=== PATIENT | female | born 1945 | race Caucasian/White ===

== ENCOUNTER 2021-09-03 08:00 | Outpatient (CLI) | payer MEDICARE ==
--- NOTE | 2021-09-03 14:43 | XRAY Report ---
PROCEDURE: Ankle View RT INDICATIONS: PAIN IN RIGHT ANKLE AND JOINTS OF RIGHT FOOT TECHNIQUE: 2 views of the ankle were acquired. COMPARISON: None FINDINGS: Bones: No fractures or dislocations. Ankle mortise is normally aligned. No suspicious bony lesions . Posterior and plantar calcaneal spurring. Soft tissues: No tibiotalar joint effusion. Achilles tendon appears normal. Diffuse lower leg zayda a. IMPRESSION: No evidence of acute bony abnormality of the right ankle. Calcaneal spurring. Reviewed by: Davis Marx MD on 09/03/2021 2:42 PM PDT Approved by: Davis Marx MD on 09/03/2021 2:42 PM PDT Station ID: [id number]
== END 2021-09-03 23:59 | disposition home or self-care (01) ==
LOC: DI.N 08:00
PROVIDERS: ATTEND Nurse Practitioner
DX: M25.571 Pain in right ankle and joints of right foot (principal); M77.31 Calcaneal spur, right foot

== ENCOUNTER 2021-09-03 08:00 | Outpatient (CLI) | payer MEDICARE ==
[2021-09-03 18:17] LABS: BASOPHILS % (AUTO) 0.6 %; EOSINOPHILS % (AUTO) 0.4 %; HCT - HEMATOCRIT 43.2 % (37.0-47.0); HGB - HEMOGLOBIN 14.2 g/dL (12.0-16.0); LYMPHOCYTES # (AUTO) 1.9 10^3/uL (1.5-3.5); LYMPHOCYTES % (AUTO) 39.5 %; MEAN CORPUSCULAR HEMOGLOBIN 31.6 pg (27.0-31.0); MEAN CORPUSCULAR HGB CONC 32.9 g/dL (32.0-36.0); MEAN PLATELET VOLUME 10.7 fL (7.9-10.8); MONOCYTES # (AUTO) 0.4 10^3/uL (0.0-1.0); MONOCYTES % (AUTO) 8.1 %; NEUTROPHILS # (AUTO) 2.5 10^3/uL (1.5-6.6); NEUTROPHILS % (AUTO) 51.2 %; PLT - PLATELET COUNT 235 10^3/uL (130-450); RED CELL DISTRIBUTION WIDTH 12.6 % (12.0-15.0); WHITE BLOOD COUNT 4.9 x10^3/uL (4.8-10.8)
[2021-09-03 18:29] LABS: ALBUMIN 4.5 g/dL (3.2-5.5); ALBUMIN/GLOBULIN RATIO 1.3 (1.0-2.2); BILIRUBIN,TOTAL 0.8 mg/dL (0.2-1.0); CALCIUM 9.5 mg/dL (8.5-10.3); CREATININE 0.6 mg/dL (0.4-1.0); TOTAL PROTEIN 7.9 g/dL (6.7-8.2)
== END 2021-09-03 23:59 | disposition home or self-care (01) ==
LOC: LAB.N 08:00
PROVIDERS: ATTEND Nurse Practitioner
DX: M25.571 Pain in right ankle and joints of right foot (principal)
CPT/HCPCS: 36415; 80053; 85025; 85379

== ENCOUNTER 2022-03-26 11:00 | Outpatient (CLI) | payer MEDICARE | END 2022-03-26 23:59 | disposition short-term general hospital (02) | LOC: EMS 11:00 | DX: R42 Dizziness and giddiness (principal); R07.9 Chest pain, unspecified | CPT/HCPCS: A0425; A0429; A0888 ==

== ENCOUNTER 2022-03-28 09:15 | Outpatient (CLI) | payer MEDICARE | END 2022-03-28 23:59 | disposition critical access hospital (66) | LOC: EMS 09:15 | DX: R41.0 Disorientation, unspecified (principal); R47.89 Other speech disturbances | CPT/HCPCS: A0425; A0429 ==

== ENCOUNTER 2022-03-28 09:31 | Emergency (ER) | payer MEDICARE ==
--- NOTE | 2022-03-28 10:39 | ED Physician Documentation ---
PD HPI FOCAL NEURO - Stated complaint Stated Complaint: CONFUSED - Chief complaint Chief Complaint: Neuro - History obtained from History obtained from: Patient - History of Present Illness Timing - onset: How many days ago (Intermittently for 2 days has noticed some inability to complete sentences and feeling a slightly off balance. She was seen 3 days ago at the walk-in clinic and referred to [facility] for hypertension. Did not have confusion at that time. Treated and released from [facility].) Timing - duration: Days (2-3) Timing - details: Gradual onset, Still present, Intermittant Severity of deficit: Moderate Weakness: No: Face, Arm, Leg Numbness: No: Face, Arm, Leg Associated symptoms: Other (difficulty with sentence completion and thought processing intermittently.). No: Headache, Nausea / vomiting, Fall, Head injury, Fever Baseline status: positive: A&OX3, ambulatory, indep Similar symptoms before: Has not had sx before Recently seen: Clinic, Emergency Dept (3 days ago.) Review of Systems Constitutional: denies: Fever, Chills Nose: denies: Rhinorrhea / runny nose, Congestion Throat: denies: Sore throat Cardiac: reports: Chest pain / pressure (intermittent aching pain left upper chest towardd anterior neck area past few days.). denies: Palpitations, Pedal edema, Calf pain Respiratory: denies: Dyspnea, Cough GI: reports: Nausea. denies: Abdominal Pain, Vomiting, Diarrhea Skin: denies: Rash, Lesions Musculoskeletal: denies: Neck pain, Back pain, Extremity swelling Neurologic: denies: Altered mental status, Headache, Head injury PD PAST MEDICAL HISTORY - Past Medical History Cardiovascular: None Respiratory: None Neuro: None Endocrine/Autoimmune: None - Present Medications Home Medications: Ambulatory Orders Medication Instructions Recorded Confirmed Aspirin [[place] Aspirin] 81 mg PO DAILY 03/28/22 03/28/22 Cholecalciferol (Vitamin D3) 50 mcg PO DAILY 03/28/22 03/28/22 [Vitamin D3] Collagen/Biotin/Ascorbic Acid 1 cap PO DAILY 03/28/22 03/28/22 [Collagen 1500 Plus C Capsule] Diclofenac Sodium Dr [Voltaren] 75 mg PO BID 03/28/22 03/28/22 Lanreotide Acetate [Somatuline 60 mg SQ ONCE 03/28/22 03/28/22 Depot] Magnesium Citrate and Oxide 1 cap PO DAILY 03/28/22 03/28/22 [Magnesium] Meclizine HCl [Motion Sickness] 25 mg PO Q6H PRN #30 tablet 03/28/22 Melatonin 10 mg PO DAILY 03/28/22 03/28/22 Mv-Mn/Om3/Dha/Epa/Fish/Lut/Yumi 1 cap PO DAILY 03/28/22 03/28/22 [Ocuvite Adult 50 Plus Softgel] [place]-3S/Dha/Epa/Fish Oil [Fish 1 cap PO DAILY 03/28/22 03/28/22 Oil 1,200 mg Softgel] Telmisartan 40 mg PO DAILY 03/28/22 03/28/22 Vitamin B Complex 1 each PO DAILY 03/28/22 03/28/22 - Allergies Allergies/Adverse Reactions: Allergies Allergy/AdvReac Type Severity Reaction Status Date / Time No Known Drug Allergies Allergy Verified 03/28/22 09:42 PD ED PE NORMAL - Vitals Vital signs reviewed: Yes - General General: Alert and oriented X 3, No acute distress, Well developed/nourished - HEENT HEENT: Atraumatic, PERRL, EOMI (no nystagmus noted), Pharynx benign - Neck Neck: Supple, no meningeal sign, No adenopathy, No bruit - Cardiac Cardiac: RRR, No murmur - Respiratory Respiratory: Clear bilaterally - Abdomen Abdomen: Soft, Non tender, Non distended - Back Back: No CVA TTP - Derm Derm: Normal color, Warm and dry - Extremities Extremities: Normal ROM s pain, No edema, No calf tenderness / cord - Neuro Neuro: Alert and oriented X 3, medicinal plant picker 2-12 intact, No motor deficit, Normal speech NIHSS - Level of Consciousness Level of consciousness: (0) Alert, Keenly responsive LOC Questions: (0) Answers both Q's correct LOC Commands: (0) Performs both correctly - Gaze Best Gaze: (0) Normal - Visual Visual: (0) No loss - Facial Palsy Facial Palsy: (0) Normal, symmetrical movement - Motor Arms (both separate) Motor Arm (right): (0) No drift Motor Arm (left): (0) No drift - Motor Legs (both separate) Motor Leg (right): (0) No drift Motor Leg (left): (0) No drift - Limb Ataxia Limb Ataxia: (0) Absent - Sensory Sensory: (0) Normal - Best Language Best Language: (0) No aphasia - Dysarthria Dysarthria: (0) Normal - Extinction and Inattention (formally neg Extinction and inattention: (0) No abnormality - Total Score/Results Total Score/Result: 0 Results - Vitals Vitals: Vital Signs - 24 hr 03/28/22 03/28/22 03/28/22 09:35 10:26 10:31 Temperature 37.2 C Heart Rate 75 62 57 L Respiratory 16 23 19 Rate Blood Pressure 164/108 H 149/99 H 149/99 H O2 Saturation 97 94 97 03/28/22 03/28/22 03/28/22 11:00 12:11 13:30 Temperature Heart Rate 70 55 L 60 Respiratory 20 19 15 Rate Blood Pressure 167/84 H 153/89 H 151/74 H O2 Saturation 98 98 98 03/28/22 14:30 Temperature Heart Rate 62 Respiratory 16 Rate Blood Pressure 145/92 H O2 Saturation 97 Oxygen O2 Source Room air - Labs Labs: Laboratory Tests 03/28/22 03/28/22 03/28/22 11:49 11:49 11:49 WBC 5.1 RBC 4.64 Hgb 14.9 Hct 45.0 MCV 97.0 MCH 32.1 H MCHC 33.1 RDW 12.6 Plt Count 218 MPV 9.6 Neut # (Auto) 2.3 Lymph # (Auto) 2.3 [place] # (Auto) 0.4 Eos # (Auto) 0.1 Baso # (Auto) 0.1 Absolute Nucleated RBC 0.00 Nucleated RBC % 0.0 ESR 6 Sodium 142 Potassium 3.5 Chloride 106 Carbon Dioxide 29 Anion Gap 7.0 BUN 13 Creatinine 0.6 Estimated GFR (MDRD) 98 Glucose 128 H Calcium 9.4 Magnesium 2.0 Total Bilirubin 0.8 AST 36 ALT 38 Alkaline Phosphatase 56 Total Protein 7.7 Albumin 4.3 Globulin 3.4 Albumin/Globulin Ratio 1.3 Lipase 32 - Rads (name of study) neck/head angio Radiology: Prelim report reviewed (no flow limiting lesions), See rad report brain MRi Radiology: Prelim report reviewed (no acute abnormalities), See rad report PD MEDICAL DECISION MAKING - ED course Complexity details: reviewed results (no acute process seen on imaging/tests.), re-evaluated patient (still feeling lightheaded/dizzy without true vertigo, with sitting up and movement of head. CT-angion without acute process, so consider posterior circulation mass/tumor/edema, MS, or infacrt.), considered differential (feeling lightheaded/dizzy, without true vertigo nor nystagmus. concern for ICH, fever/infections, mass effect, metabolic, etc.), d/w patient Departure - Departure Disposition: 01 Home, Self Care Clinical Impression: Ataxia, Aphasia Condition: Stable Record reviewed to determine appropriate education?: Yes Instructions: ED Dizziness UKO Follow-Up: MIRANDA RAMOS MD [Primary Care Provider] - Prescriptions: Meclizine HCl [Motion Sickness] 25 mg PO Q6H PRN #30 tablet PRN Reason: Vertigo Comments: Your CT and MRI did not show any areas of vascular occlusion or diminished blood flow. No signs of brain structural abnormalities such as stroke, tumors, MS, the swelling. I presume you are feeling of off balance and trouble speaking relate more to inner ear issues, in particular the off balance and dizziness. I would suggest some antivertigo type medicine such as meclizine 25 mg twice daily for the next several days to week. Tylenol if needed for pains. I would recheck with your primary care if not improving well over the next several days to a week. Continue your current usual medications. Your blood pressure here was actually good. Your heart rate is in the 60s range so I would be reluctant to have you back on a beta-skye at this point. I would go with the other blood pressure medicine recently prescribed at [facility]. Discharge Date/Time: 03/28/22 17:17
[2022-03-28] MEDS ORDERED: SODIUM CHLORIDE 0.9% 1,000 ML IV STA (11:35)
[2022-03-28 11:53] LABS: BASOPHILS # (AUTO) 0.1 10^3/uL (0.0-0.1); BASOPHILS % (AUTO) 1.4 %; EOSINOPHILS # (AUTO) 0.1 10^3/uL (0.0-0.7); EOSINOPHILS % (AUTO) 1.2 %; HGB - HEMOGLOBIN 14.9 g/dL (12.0-16.0); LYMPHOCYTES # (AUTO) 2.3 10^3/uL (1.5-3.5); LYMPHOCYTES % (AUTO) 44.7 %; MEAN CORPUSCULAR HEMOGLOBIN 32.1 pg (27.0-31.0); MEAN CORPUSCULAR HGB CONC 33.1 g/dL (32.0-36.0); MEAN PLATELET VOLUME 9.6 fL (7.9-10.8); MONOCYTES # (AUTO) 0.4 10^3/uL (0.0-1.0); MONOCYTES % (AUTO) 7.1 %; NEUTROPHILS # (AUTO) 2.3 10^3/uL (1.5-6.6); NEUTROPHILS % (AUTO) 45.4 %; PLT - PLATELET COUNT 218 10^3/uL (130-450); RED BLOOD COUNT 4.64 10^6/uL (4.20-5.40); RED CELL DISTRIBUTION WIDTH 12.6 % (12.0-15.0); WHITE BLOOD COUNT 5.1 x10^3/uL (4.8-10.8)
[2022-03-28] MEDS ORDERED: iohexoL-300 100 ML VIAL ONE (12:01)
[2022-03-28 12:10] LABS: ALBUMIN 4.3 g/dL (3.2-5.5); ALBUMIN/GLOBULIN RATIO 1.3 (1.0-2.2); BILIRUBIN,TOTAL 0.8 mg/dL (0.2-1.0); CALCIUM 9.4 mg/dL (8.5-10.3); CREATININE 0.6 mg/dL (0.4-1.0); POTASSIUM 3.5 mmol/L (3.5-5.0); TOTAL PROTEIN 7.7 g/dL (6.7-8.2)
--- NOTE | 2022-03-28 13:25 | CT Report ---
PROCEDURE: ANGIO HEAD W/WO INDICATIONS: L sided facial droop CONTRAST: 80mL Omni 300 TECHNIQUE: Precontrast 4.5 mm thick angled axial sections acquired from the foramen magnum to the vertex. Afte r the administration of intravenous contrast, 1 mm thick sections acquired through the [place] of [place] is. Postcontrast 4.5 mm thick sections then re-acquired from the foramen magnum to the vertex. 3-di mensional gzllahc-ujqjpiwul-irdgngdbxg (MIP) and/or volume rendering reformats were acquired of the c entral intracranial vasculature. For radiation dose reduction, the following was used: automated ex posure control, adjustment of mA and/or kV according to patient size. COMPARISON: CTA neck 03/28/2022 FINDINGS: Image quality: Excellent. Anterior circulation: Intracranial internal carotid arteries are normal in size and flow. The flow within the paired anterior cerebral arteries is normal and symmetric. The flow within the middle cer ebral arteries is normal and symmetric. The anterior communicating artery is seen. No aneurysms are seen. Posterior circulation: Slight left vertebral artery dominance. Visualized portions of the vertebral a rteries demonstrate normal caliber, and join to form a normal appearing basilar artery. Flow within the posterior cerebral arteries is normal and symmetric. No aneurysms are seen. The ventricular system and cortical sulci demonstrate atrophy, consistent for patient's stated age. There are areas of hypodensity in the periventricular and subcortical white matter. There is no acut e intra or extra-axial fluid collection. No acute hemorrhage, mass lesion or midline shift. Brainst em is unremarkable. Globes are symmetrical. Sinuses are aerated. Osseous structures are intact. IMPRESSION: 1. No acute intracranial process. 2. Mild to moderate atrophy and chronic microvascular ischemic changes. 3. No areas of hemodynamically significant stenosis, vascular occlusion or aneurysmal dilation within the anterior circulation. 4. No areas of hemodynamically significant stenosis, vascular occlusion or aneurysmal dilation within the posterior circulation. Reviewed by: Bridgett Underwood MD on 03/28/2022 1:24 PM PST Approved by: Bridgett Underwood MD on 03/28/2022 1:24 PM PST Station ID: [id number]
--- NOTE | 2022-03-28 13:28 | CT Report ---
PROCEDURE: ANGIO NECK W INDICATIONS: L sided facial droop, L neck pain CONTRAST: 80mL Omni 300 TECHNIQUE: After the administration of intravenous contrast, 1.5 mm axial sections acquired from the aortic arch to the [place] of [place]. Coronal 3-D maximum intensity projection (MIP) and/or volume rendering ref ormats were then performed. For radiation dose reduction, the following was used: automated exposur e control, adjustment of mA and/or kV according to patient size. COMPARISON: None. FINDINGS: Image quality: Excellent. The origins of the left and right common, internal and external carotid arteries demonstrate no areas of hemodynamically significant stenosis, vascular occlusion or aneurysmal dilation. Origin of the le ft vertebral artery and right vertebral artery demonstrate no areas of hemodynamically significant st enosis, vascular occlusion or aneurysmal dilation. Aortic arch demonstrates conventional anatomy. Asc ending thoracic aorta is mildly prominent measuring 3.8 cm. Limited, visualized portions of the subcl deonte vasculature are unremarkable. Thyroid gland demonstrates multiple areas of low-attenuation calc ification bilaterally, left greater than right. IMPRESSION: There are no areas of hemodynamically significant stenosis, vascular occlusion or aneurysmal dilation within the neck vasculature. The estimate of stenosis included in the report of the imaging study was calculated using the NASCET method CLINICAL RECOMMENDATION STATEMENTS: In patients <35 years with an ITN detected on CT, MRI, or extrathyroidal ultrasound, the Committee re commends further evaluation with dedicated thyroid ultrasound if the nodule is "e1 cm and has no susp icious imaging features, and if the patient has normal life expectancy. In patients "e35 years with an ITN detected on CT, MRI, or extrathyroidal ultrasound, the Committee r ecommends further evaluation with dedicated thyroid ultrasound if the nodule is "e1.5 cm and has no s uspicious imaging features, and if the patient has normal life expectancy. (ACR, 2014) Reviewed by: Bridgett Underwood MD on 03/28/2022 1:27 PM PST Approved by: Bridgett Underwood MD on 03/28/2022 1:27 PM PST Station ID: [id number]
[2022-03-28] MEDS ORDERED: iohexoL-300 100 ML VIAL IVP ONE (14:20)
[2022-03-28 14:36] VITALS: BP 145/92
--- NOTE | 2022-03-28 16:38 | MRI Report ---
PROCEDURE: BRAIN WO INDICATIONS: off balance, dizzy; HTN. TECHNIQUE: Noncontrast axial T1 spin echo, axial T2 fast spin echo, sagittal and axial FLAIR, coronal T2 fast sp in echo, axial gradient echo, axial diffusion and ADC through the brain. COMPARISON: None. FINDINGS: Image quality: Excellent. CSF Spaces: Basal cisterns are patent. No extra-axial fluid collections. Ventricles are normal in size and shape. Brain: No intracranial masses or hemorrhage. Castle/white matter interface is normal. Age-related vol ume loss and mild small vessel ischemic change. Brainstem appears normal. Diffusion-weighted images demonstrate no acute ischemic insult. No chronic ischemic insults. Normal intravascular flow voids are present. Skull and face: Calvarium has normal marrow signal. Orbits appear normal. Sinuses: Sinuses and mastoids are clear. IMPRESSION: 1. Age-related volume loss and mild small vessel ischemic change. 2. No evidence of acute stroke, hemorrhage, or mass. No evidence of acute intracranial process. Reviewed by: Davis Marx MD on 03/28/2022 4:37 PM PST Approved by: Davis Marx MD on 03/28/2022 4:37 PM PST Station ID: [id number]
[2022-03-28] MEDS ORDERED: MECLIZINE 12.5 MG TABLET PO STA (16:39)
== END 2022-03-28 17:17 | disposition home or self-care (01) ==
LOC: EDUNIT# → ED 09:31
DX: R27.0 Ataxia, unspecified (principal); R47.01 Aphasia; R42 Dizziness and giddiness; R41.0 Disorientation, unspecified; R07.9 Chest pain, unspecified; R11.0 Nausea; Z79.82 Long term (current) use of aspirin
CPT/HCPCS: 36415; 70496; 70498; 70551; 80053; 83690; 83735; 85025; 85651; 93005; 99284; A9270; Q9967

== ENCOUNTER 2023-09-26 08:00 | Outpatient (CLI) | payer MEDICARE | END 2023-09-26 23:59 | disposition home or self-care (01) | LOC: LAB.N 08:00 | PROVIDERS: ATTEND Family Medicine | DX: R30.0 Dysuria (principal) | CPT/HCPCS: 87086; 87181 ==

== ENCOUNTER 2023-11-10 08:45 | Outpatient (CLI) | payer MEDICARE | END 2023-11-10 09:00 | disposition home or self-care (01) | LOC: LAB.N 08:45 | PROVIDERS: ATTEND Physician Assistant Medical | DX: R82.81 Pyuria (principal) | CPT/HCPCS: 87086; 87181 ==

== ENCOUNTER 2024-01-10 12:11 | Outpatient (CLI) | payer MEDICARE | END 2024-01-10 12:12 | disposition critical access hospital (66) | LOC: EMS 12:11 | DX: S00.83XA Contusion of other part of head, initial encounter (principal); S60.212A Contusion of left wrist, initial encounter; R07.81 Pleurodynia; M25.562 Pain in left knee; W01.198A Fall on same level from slipping, tripping and stumbling with subsequent striking against other object, initial encounter; Y92.008 Other place in unspecified non-institutional (private) residence as the place of occurrence of the external cause | CPT/HCPCS: A0425; A0427 ==

== ENCOUNTER 2024-01-10 12:37 | Emergency (ER) | payer MEDICARE ==
--- NOTE | 2024-01-10 12:56 | ED Physician Documentation ---
PD HPI Fall - Stated complaint Stated Complaint: GLF - Chief complaint Chief Complaint: Trauma Hd/Nk - History obtained from History obtained from: Patient - History of Present Illness Mechanism of injury: Tripped (she was walking carrying things into garage and did not see ladder, which she tripped over and fell forward to left, striking face, chest, wrist and knee. Able to get back up. Walking but sore in knee. Pain with ROM of the wrist, but can derrick hand and hold. Main injury left cheek with swelling/bruising.), Lost balance Fall distance: Standing position Where injury occurred: Home Timing - onset: Yesterday Injury(ies) location: Face, Chest, Left Uppper Extremity, Left Lower Extremity Associated symptoms: No: LOC, AMS, Weakness, Nausea / vomiting Worsens with: Movement (wrist), Palpation (face, chest left) Contributing factors: No: Anticoagulated Similar symptoms before: Has not had sx before Recently seen: Clinic (went to walk in clinic and deferred to ER for im aging/eval, particularly facial and chest.) Review of Systems Eyes: denies: Loss of vision, Decreased vision Respiratory: denies: Dyspnea GI: denies: Abdominal Pain, Nausea, Vomiting Skin: denies: Abrasion (s), Laceration (s) Neurologic: reports: Head injury. denies: Altered mental status, Headache, LOC PD PAST MEDICAL HISTORY - Past Medical History Past Medical History: Yes Cardiovascular: None Respiratory: None Neuro: None Endocrine/Autoimmune: None - Present Medications Home Medications: Ambulatory Orders Medication Instructions Recorded Confirmed Aspirin [[place] Aspirin] 81 mg PO DAILY 03/28/22 03/28/22 Cholecalciferol (Vitamin D3) 50 mcg PO DAILY 03/28/22 03/28/22 [Vitamin D3] Collagen/Biotin/Ascorbic Acid 1 cap PO DAILY 03/28/22 03/28/22 [Collagen 1500 Plus C Capsule] Diclofenac Sodium Dr [Voltaren] 75 mg PO BID 03/28/22 03/28/22 Lanreotide Acetate [Somatuline 60 mg SQ ONCE 03/28/22 03/28/22 Depot] Magnesium Citrate and Oxide 1 cap PO DAILY 03/28/22 03/28/22 [Magnesium] Meclizine HCl [Motion Sickness] 25 mg PO Q6H PRN #30 tablet 03/28/22 Melatonin 10 mg PO DAILY 03/28/22 03/28/22 Mv-Mn/Om3/Dha/Epa/Fish/Lut/Yumi 1 cap PO DAILY 03/28/22 03/28/22 [Ocuvite Adult 50 Plus Softgel] [place]-3S/Dha/Epa/Fish Oil [Fish 1 cap PO DAILY 03/28/22 03/28/22 Oil 1,200 mg Softgel] Telmisartan 40 mg PO DAILY 03/28/22 03/28/22 Vitamin B Complex 1 each PO DAILY 03/28/22 03/28/22 Meloxicam [Mobic] 7.5 mg PO BID 10 Days #20 tablet 01/10/24 Ondansetron Odt [Zofran] 4 mg TL Q6H PRN #10 tablet 01/10/24 oxyCODONE [Roxicodone] 5 mg PO Q6H PRN #15 tablet 01/10/24 - Allergies Allergies/Adverse Reactions: Allergies Allergy/AdvReac Type Severity Reaction Status Date / Time No Known Drug Allergies Allergy Verified 01/10/24 12:44 - Social History Does the pt smoke?: No Smoking Status: Never smoker Does the pt drink ETOH?: No Does the pt have substance abuse?: No PD ED PE NORMAL - Vitals Vital signs reviewed: Yes - General General: Alert and oriented X 3, Well developed/nourished - HEENT HEENT: Other (quite notable swelling with tightness and ecchymosis left cheek c/w firm hematoma. Unable to palpate zygoma due to it. Normal sensation upper teeth and lip. Good eye movement wihtout pain. ) - Neck Neck: Supple, no meningeal sign, No bony TTP - Cardiac Cardiac: RRR, No murmur - Respiratory Respiratory: No respiratory distress, Clear bilaterally, Other (tender left lateral lower ribs without crepitance. ) - Abdomen Abdomen: Soft, Non tender - Back Back: No spinal TTP - Derm Derm: Normal color, Warm and dry - Extremities Extremities: Other (left wrist with brusing and tender radial aspect. Not particularly tender in snuffbox. Left knee with some anterior tnederneesss but no effusion and has good full extension. ) - Neuro Neuro: Alert and oriented X 3, No motor deficit, No sensory deficit, Normal speech Results - Vitals Vitals: Vital Signs - 24 hr 01/10/24 01/10/24 01/10/24 12:44 12:53 14:53 Heart Rate 56 L 51 L 58 L Respiratory 13 16 16 Rate Blood Pressure 157/91 H 151/84 H 124/73 O2 Saturation 92 94 96 01/10/24 01/10/24 16:00 16:52 Heart Rate 56 L 57 L Respiratory 13 16 Rate Blood Pressure 174/95 H 174/95 H O2 Saturation 94 93 Oxygen O2 Source Room air - Rads (name of study) wrist xrY Relevant Findings:: Prelim report reviewed, EMP independent interpretation of test (no fractures) knee xray Relevant Findings:: Prelim report reviewed, EMP independent interpretation of test (no fractures) chest CT Relevant Findings:: Prelim report reviewed (no lung nor rib inuries noted), EMP independent interpretation of test head CT Relevant Findings:: Prelim report reviewed (no ICH nor acute process, hematome face noted, see facial CT), EMP independent interpretation of test facial CT Relevant Findings:: Prelim report reviewed (no factures. Large hematoma left suprazymgomatic area. ), EMP independent interpretation of test PD Medical Decision Making - ED course Complexity details: reviewed results, considered differential (fall with mainly facial hematoma, but cannot exclude fracture based on exam due to that. Can get imaging. Pain in left ribs/wrist and knee and can image these aswell, with lower suspicion. ), d/w patient Departure - Departure Disposition: 01 Home, Self Care Clinical Impression: Traumatic hematoma of face, Left wrist sprain, Knee contusion, Accidental fall, Apical lung nodule Condition: Stable Record reviewed to determine appropriate education?: Yes Instructions: ED Hematoma Follow-Up: Jamel Stanley DDS [Provider Admit Priv/Credential] - Prescriptions: Meloxicam [Mobic] 7.5 mg PO BID 10 Days #20 tablet oxyCODONE [Roxicodone] 5 mg PO Q6H PRN #15 tablet PRN Reason: Pain Ondansetron Odt [Zofran] 4 mg TL Q6H PRN #10 tablet PRN Reason: Nausea / Vomiting Comments: Your CT scan of the face does not show any fractures. There is the collection of blood visible clinically also seen on the CT scan (hematoma). The CT of the head does not show any bleeding swelling or local injury. The CT of the chest does not show any rib fractures or organ injury. We did x-ray your knee and wrist as well. No fracture seen on either spot. Obviously the wrist is still sore with swelling and bruising and may benefit from a wrist splint or less activity with it as it is healing. The hematoma of the face should depressurized over the next couple of days as the initial swelling reduces. It then may take 2 or 3 weeks for it to dissipate and resorb fully. With gravity the bruising in the cheek will end up down in the face and likely side of the neck over the next several days as well. There is a maxillofacial surgeon specialist in [place], Jamel Solis, and you could follow-up with that office. If the hematoma is not resorbing readily, consideration could be for evacuation of the hematoma but typically is not done for least a week or so as it often resolves on its own. You will be sore over the next several days to a week or more. I would suggest some regular anti-inflammatories. To that add Tylenol 650 mg 4 times daily. Atop that oxycodone every 6 hours if needed for worse pain. I would anticipate needing that just in the short-term over the next several days or so. Call the referral office today or tomorrow for an appointment presumably next week. Incidental note on your chest CT is of a small 3 to 4 mm nodule in the left upper lung field that looks same size as a CT from several months ago. No interval change. Similar with a small lesion which is likely benign cyst appearing in the liver. I printed a copy of your CT report for you. Again the impression from the radiologist is no change in the lung nodule. I sent your prescriptions to your preferred pharmacy. Forms: PCP List Discharge Date/Time: 01/10/24 17:01
[2024-01-10] MEDS: ONDANSETRON 4 MG/2 ML VIAL IVP STA (13:38)
[2024-01-10] MEDS: KETOROLAC 15 MG/ML VIAL IVP STA (13:38)
[2024-01-10] MEDS: ONDANSETRON ODT 4 MG TABLET TL STA (13:46)
[2024-01-10] MEDS: HYDROmorphone 0.5 MG/0.5 ML SYRINGE IVP STA (13:50)
[2024-01-10] MEDS ORDERED: iohexoL-300 100 ML VIAL ONE (14:20)
--- NOTE | 2024-01-10 14:32 | XRAY Report ---
PROCEDURE: Knee 3V LT INDICATIONS: fall to left onto knee/wrist TECHNIQUE: 3 views of the knee(s) were acquired. COMPARISON: None. FINDINGS: Bones: No fractures or dislocations. Mild to moderate tricompartmental osteoarthritis is seen. No pa tella subluxation. No suspicious bony lesions. Soft tissues: Small suprapatellar knee joint effusion. No suspicious soft tissue calcifications or m asses. IMPRESSION: No acute left knee fracture or dislocation. Mild to moderate tricompartmental osteoarthritis. Small s uprapatellar joint effusion. Reviewed by: Andrea Roberts MD on 01/10/2024 2:31 PM PDT Approved by: Andrea Roberts MD on 01/10/2024 2:31 PM PDT Station ID: [id number]
[2024-01-10] MEDS: iohexoL-300 100 ML VIAL IVP ONE (14:48)
--- NOTE | 2024-01-10 14:58 | XRAY Report ---
PROCEDURE: Wrist 3+V LT INDICATIONS: fall to left, injury knee/wrist TECHNIQUE: 4 views of the wrist were acquired. COMPARISON: None. FINDINGS: Bones: No fractures or dislocations. Diffuse osteopenia. Severe first carpometacarpal joint degener ative arthritis. Triscaphe joint degenerative arthritis. No suspicious bony lesions. Soft tissues: No suspicious soft tissue calcifications or masses. IMPRESSION: Degenerative arthritis. Diffuse osteopenia. No acute bony abnormality. Reviewed by: Davis Marx MD on 01/10/2024 2:57 PM PDT Approved by: Davis Marx MD on 01/10/2024 2:57 PM PDT Station ID: [id number]
--- NOTE | 2024-01-10 14:59 | CT Report ---
PROCEDURE: Head WO INDICATIONS: fall to left, face/head injuiry TECHNIQUE: Noncontrast 4.5 mm thick angled axial sections acquired from the foramen magnum to the vertex. For r adiation dose reduction, the following was used: automated exposure control, adjustment of mA and/or kV according to patient size. COMPARISON: None. FINDINGS: Image quality: Excellent. CSF spaces: Basal cisterns are patent. No extra-axial fluid collections. Ventricles are normal in size and shape. Brain: No midline shift. No intracranial masses or hemorrhage. [place]-white matter interface is norm al. Skull and face: Large left lateral cheek hematoma. Calvarium and visualized facial bones are intact, without suspicious lesions. Sinuses: Visualized sinuses and mastoids are clear. IMPRESSION: Large hematoma, left lateral cheek. No acute intracranial process. Reviewed by: Davis Marx MD on 01/10/2024 2:58 PM PDT Approved by: Davis Marx MD on 01/10/2024 2:58 PM PDT Station ID: [id number]
--- NOTE | 2024-01-10 15:01 | CT Report ---
PROCEDURE: Maxillofacial WO INDICATIONS: fall to left; maxillary hematoma TECHNIQUE: Noncontrast 1.5 mm thick axial images acquired from the mandible through the frontal sinuses, with co paulette and sagittal reformatting. For radiation dose reduction, the following was used: automated ex posure control, adjustment of mA and/or kV according to patient size. COMPARISON: CT head from the same date. FINDINGS: Image quality: Excellent. Bones and teeth: Orbital camargo are intact. Sinus camargo show no fracture or deformity. Nasal bones and septum are intact. Visualized portions of the mandible demonstrate no fractures or subluxation. Zygomatic arches are intact. Pterygoid plates are intact. Visualized portions of the skull base an d auditory canals are intact. Sinuses: Paranasal sinuses are aerated, without fluid levels, mucosal thickening, or mucoceles. Mas toid air cells are aerated. Soft tissues: Large left face hematoma just superficial to the left zygomatic arch. It involves the l eft lateral cheek. No enlarged lymph nodes. No soft tissue lacerations or debris. Vascular: Visualized vascular structures appear normal in the absence of contrast. Bony vascular fo ramina and canals are intact. IMPRESSION: 1. Large left lateral hematoma superficial to the left zygomatic arch. 2. No acute displaced facial bone fracture or mandibular fracture. 3. Paranasal sinuses are clear. Reviewed by: Davis Marx MD on 01/10/2024 3:00 PM PDT Approved by: Davis Marx MD on 01/10/2024 3:00 PM PDT Station ID: [id number]
--- NOTE | 2024-01-10 15:55 | CT Report ---
PROCEDURE: Chest W INDICATIONS: fall to left; lateral ribs pain CONTRAST: 100ml [id number] TECHNIQUE: After the administration of intravenous contrast, a CT scan of the chest was performed. Images were recorded and evaluated at appropriate window settings. Reformats: axial MIP of the chest, coronal and sagittal. For radiation dose reduction, the following was used: automated exposure control, adjustme nt of mA and/or kV according to patient size. COMPARISON: 08/07/2023 FINDINGS: Image quality: Suboptimal due to motion artifact. Chest wall and lower neck: No thyroid nodule which requires sonographic follow up. No breast mass. No axillary or supraclavicular adenopathy by size. Lungs and pleura: No consolidation. No pleural effusions. No pneumothorax. Stable 3-4 mm solid nodul e, left upper lobe (series 4, image 24). Resolved tree in bud nodules in the left upper lobe. Low scotty g volumes. Mediastinum: Heart size is normal. No pericardial effusion. No large vessel abnormality. No mediastin al adenopathy by size criteria. Bones: No aggressive osseous abnormality. Upper Abdomen: 1.3 cm segment 2 liver lesion. Low-attenuation of the liver, probably hepatic steatosi s. 1.2 cm left adrenal nodule. 1.4 cm hypoattenuating lesion in segment 7 with indeterminate attenuat ion. Mild nodular thickening of the right adrenal gland. IMPRESSION: No displaced fractures, pneumothorax, contusions or pneumothorax. Stable 3 to 4 mm solid nodule in the left upper lobe. Consider 12 month follow-up if this patient is at high risk for developing lung cancer, per Fleischner Society guidelines. Indeterminate liver and adrenal lesions. Recommend outpatient MRI (liver mass protocol) for complete characterization, if not performed in the past. Reviewed by: Luis Fernando Trevino MD on 01/10/2024 3:54 PM PDT Approved by: Luis Fernando Trevino MD on 01/10/2024 3:54 PM PDT Station ID: [id number]
[2024-01-10 16:13] VITALS: BP 174/95
[2024-01-10 17:02] VITALS: O2SAT 93
== END 2024-01-10 17:01 | disposition home or self-care (01) ==
LOC: EDUNIT# → ED 12:37
DX: S00.83XA Contusion of other part of head, initial encounter (principal); S80.02XA Contusion of left knee, initial encounter; S63.502A Unspecified sprain of left wrist, initial encounter; W18.09XA Striking against other object with subsequent fall, initial encounter; Y93.89 Activity, other specified; Y92.008 Other place in unspecified non-institutional (private) residence as the place of occurrence of the external cause; R91.1 Solitary pulmonary nodule; K76.89 Other specified diseases of liver
CPT/HCPCS: 70450; 70486; 71260; 73110; 73562; 96374; 96375; 99284; J1170; Q0162; Q9967